=== PATIENT | male | born 1995 | race Two or more races ===

== ENCOUNTER 2025-01-04 15:26 | Emergency (ER) | payer MEDICAID, SELFPAY ==
[2025-01-04 15:34] VITALS: BP 174/89; PULSE 125; RESP 20; TEMP 36.9; O2SAT 98
--- NOTE | 2025-01-04 15:42 | PD.EDADULT ---
ED General RME/HPI General Stated complaint: leg pain Time Seen by Provider: 01/04/25 15:28 Arrival date/time: 01/04/25 15:26 RME / HPI RME / HPI narrative: DR. WINCHESTER MAIN ED EVALUATION: 29 year old male with past medical history significant for schizophrenia and polysubstance abuse presents to the Emergency Department [facility] after he was found walking on the side of the [facility] [address] towards [place]. Patient states that he wanted to catch a ride to [place] and was walking towards [place]. Per EMS, patient acting weird and was tachycardic at 125 on the monitor; blood pressure was 220/118 and blood glucose was 105. Patient denies any of the following: fall, injury, loss of consciousness, or any other symptoms at this time. Patient himself reports he is asymptomatic. Related Data Previous Rx's ?Medication ?Instructions ?Recorded sulfamethoxazole 400 1 tab PO BID #10 tabs 05/20/23 mg-trimethoprim 80 mg tablet (Bactrim) Allergies Allergy/AdvReac Type Severity Reaction Status Date / Time Penicillins Allergy Unknown RASH Verified 05/20/23 18:52 Review of Systems Review of Systems Systems Reviewed: All systems reviewed, normal except as documented Narrative Review of Systems: Constitutional: DENIES: fevers; Eyes: DENIES: loss of vision; Head/Ear/Nose: DENIES: loss of hearing. Throat: DENIES: dysphagia. Cardiovascular: DENIES: chest pain, dyspnea, or syncope. Respiratory: DENIES: shortness of breath; Gastrointestinal: DENIES: rectal bleeding or melena. Genitourinary: DENIES: dysuria (painful or difficult urination); Musculoskeletal: DENIES: arthralgia (pain in a joint); Skin: DENIES: rash; Neurological: DENIES: loss of function or movement; Psychiatric: DENIES: recent major life stressor, emotional problem, illicit drug use or abuse; Endocrinology: DENIES: weight change,; Hematologic/Lymphatic: DENIES: abnormal bruising. Allergic/Immunologic: DENIES: urticaria (hives). Past Medical History Past Medical History CARDIAC: Negative Congestive Heart Failure RESPIRATORY: Negative Chronic Obstructive Pulmonary Disease (COPD) GENITOURINARY: Negative Renal Disease ENDOCRINE: Negative Diabetes Mellitus Type 1 or Diabetes Mellitus Type 2 PSYCHO/SOCIAL: Positive Schizophrenia Social History SMOKING STATUS: Never smoker SUBSTANCE USE: marijuana and methamphetamine ALCOHOL: Never ED Exam Narrative Physical exam: Physical Exam:? General:?? ? The vital signs were reviewed. ? ? The patient is non-toxic, in no apparent distress and appears healthy with a patent airway, no respiratory distress and has no apparent circulatory problems. Head & Scalp:?? ? Normocephalic, atraumatic. Face:?? ? Appears normal and is without lesions, deformity. Ears:??? Left external pinna appears normal. ? ? Right external pinna appears normal. Eyes:?? ? The sclera is anicteric.? No obvious photophobia. ? ? The Left and Right Orbit/Lid/Conjunctiva appears normal without swelling, discoloration or injection. Nose: ? ? The nose is without deformity, discharge or tenderness; Throat: ? ? Appears normal.? The mucous membranes are pink and moist without exudates, redness or mass seen.? The tongue appears normal. Neck: The neck is supple and no apparent mass or adenopathy. Chest: The chest wall is normal in size and symmetry and has no chest wall tenderness or crepitus. ? ? The patient displays normal ventilator effort without retractions, accessory muscle use and has adequate air movement bilaterally with no wheezes and no rales. ? Cardiovascular: Heart rate is tachycardic at about 130. No murmurs, rubs, or gallops. Gastrointestinal: The abdomen appears normal.? No obvious hernias or mass. The abdomen is soft and benign, non-distended, with no pain, no guarding and no rebound tenderness.? Bowel sounds are present and normal sounding.? No CVA tenderness. Genitourinary: Back/Spine: Extremities/Musculoskeletal/lymphatic:? ? ? The bilateral upper and lower extremities are warm. There is no evidence of arterial? insufficiency. There is no evidence of venous insufficiency/edema. The patient spontaneously moves bilateral upper and lower extremities with no pain and no limitation of movement.? There is no apparent, injury or trauma. Skin:? The skin is warm, dry and intact.? No rashes. No petechia. No purpura. No abnormal bruising.? The color is appropriate with no cyanosis. Mental status/Psychiatric: Mental status is appropriate for age. The patient has no apparent delusions, visual hallucinations, no apparent audible hallucinations. The patient has no apparent suicidal thoughts/ideation and no apparent homicidal thoughts/ideation. Neurological:? The patient is awake, alert, interactive, cordial, cooperative and is oriented to name and situation. The patient follows commands and answers historical question with no impairment.?? There is no visual disturbance apparent.? The pupils are equal and reactive bilaterally with normal eye movements and no diplopia The bilateral upper and lower extremities have normal strength, normal range of motion and normal functioning. The gait, station and balance appears? to be baseline with no acute change Course Quality Measures none Orders Category Date Time Status EKG (ED ONLY) *Do not use* NOW Care 01/04/25 15:47 Completed EKG (ED Only) Stat Exams 01/04/25 15:47 Draft XR chest 1V portable Stat Exams 01/04/25 15:47 Ordered Alcohol, Blood Medical Stat Lab 01/04/25 15:43 Ordered Blood Culture (Lab) Stat Lab 01/04/25 15:47 Ordered CBC Stat Lab 01/04/25 15:43 Ordered Comprehensive Metabolic Panel Stat Lab 01/04/25 15:43 Ordered Drug Screen,Urine Stat Lab 01/04/25 15:43 Ordered Lactate (Lactic Acid) Stat Lab 01/04/25 15:47 Ordered T4 (Thyroxine) Stat Lab 01/04/25 15:46 Ordered TSH [Thyroid Stimulating Hormone] Stat Lab 01/04/25 15:43 Ordered Urinalysis Stat Lab 01/04/25 15:43 Ordered Venous Blood Gas Stat Lab 01/04/25 15:47 Ordered Vital Signs Vital signs: Vital Signs Temperature 98.4 F 01/04/25 15:34 Pulse Rate 125 H 01/04/25 15:34 Respiratory Rate 20 01/04/25 15:34 Blood Pressure 174/89 H 01/04/25 15:34 Pulse Oximetry (%) 98 01/04/25 15:34 Oxygen Delivery Method Room Air 01/04/25 15:34 [facility] Patient data External records reviewed:: EMS form Clinical information provided by:: patient and EMS Social determinants that could affect healthcare access:: substance use (polysubstance abuse ) Patient has the following chronic illnesses:: schizophrenia How is presenting disease/condition affected by chronic disease/condition?: exacerbated by Evaluation data The following diagnostics were reviewed and interpreted by me:: lab results, radiology exam(s) and EKG tracing(s) (EKG#1: EKG at 1611 hours. Interpreted by me: sinus tachycardia, rate 124, no STEMI) Lab and/or radiology exams considered but not ordered:: none Interpretation Summary: See above under MDM narrative. Medications Medications considered but not ordered:: none Medication administrations:: see above if any Consultations Consultation(s) initiated? (list below): No Diagnosis Differential Diagnosis ED Complaint MDM: dehydration, electrolyte imbalance, methamphetamine abuse, schizophrenia Most likely diagnosis given after review of the tests above:: See below Admission Indicated Admission indicated?: not indicated Explain why admission is indicated or not indicated:: Patient eloped. Admission Request Was there a request for admission?: No Disposition Plan Disposition Plan: other (specify) (Eloped) Medical Decision Making MDM Narrative MDM Narrative: Patient was seen in the ambulance bay and then moved to the waiting room he was found with confusion at [facility] they called an ambulance that came pick them up. Patient denies using any drugs but his heart rate was 124 he was acting weird making some strange comments. By had no pain or at was in no distress. Medical workup for tachycardia was initiated charge nurse put him in the waiting room at about 1620 hrs. the lab called me and states he is refusing his labs and soon after nurse approaches me and states he is eloped. While patient states he is not under the influence of any drugs I am highly suspicious that that would be the cause of his sinus tachycardia and note the EKG confirms that. There is no ST elevation MN. Geri Castanon, am scribing for and in the presence of Dr. Winchester. Differential Diagnosis Differential Diagnosis: dehydration, electrolyte imbalance, methamphetamine abuse, schizophrenia Discharge Plan Plan Patient Disposition: Elopement Prescriptions/Referrals Prescriptions/Med Rec: No Action sulfamethoxazole-trimethoprim [Bactrim] 400-80 mg tablet 1 tab PO BID Qty: 10 0RF Referrals: No Primary/Family,Physician [Primary Care Provider] - In 1 week Problem List Clinical Impression: Sinus tachycardia, Mental health problem Patient/Caregiver Discharge Instructions Print Language: Luxembourger
--- NOTE | 2025-01-04 15:47 | EKG_ITS ---
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
[2025-01-04 15:54] VITALS: PULSE 132; BMI 31.3
--- NOTE | 2025-01-04 16:01 | PC.NURSE ---
PT REFUSED X-RAY.
--- NOTE | 2025-01-04 16:30 | PC.NURSE ---
Patient was seen walking out, patient mumbled something unheard and left the facility. Patient did not answer at 1631, when asked by MD to have patient sign AMA form as patient had refused labs.
== END 2025-01-04 18:56 | disposition left against medical advice (07) ==
PROVIDERS: Emergency Provider Emergency Medicine
DX: R00.0 Tachycardia, unspecified (principal); F20.9 Schizophrenia, unspecified
CPT/HCPCS: 80053; 80307; 80320; 81001; 82803; 83605; 84436; 84443; 85025; 87040; 93005; 99281; G0480

== ENCOUNTER 2025-05-25 13:35 | Emergency (ER) | payer MEDICAID, SELFPAY ==
--- NOTE | 2025-05-25 14:07 | PD.EDABDPN ---
ED Abdominal Pain RME/HPI General Chief Complaint: Abdominal Pain Stated complaint: umbilical hernia painful Time seen by provider: 05/25/25 13:42 Arrival date/time: 05/25/25 13:35 RME / HPI RME / HPI narrative: 29 year old male with history of chronic pain on suboxone presents to the ED for evaluation of umbilical hernia pain beginning 30 minutes prior to arrival. States he has had the umbilical hernia since 2022 and no pain associated with it previously. Patient additionally reports since starting the Suboxone 3 months ago he has been constipated an straining more than usual. No other associated symptoms reported. Denies fevers, chills, nausea, vomiting. Related Data Previous Rx's ?Medication ?Instructions ?Recorded sulfamethoxazole 400 1 tab PO BID #10 tabs 05/20/23 mg-trimethoprim 80 mg tablet (Bactrim) polyethylene glycol 3350 17 17 g PO QDAY PRN constipation #238 05/25/25 gram/dose oral powder (Miralax) grams Allergies Allergy/AdvReac Type Severity Reaction Status Date / Time Penicillins Allergy Unknown RASH Verified 05/20/23 18:52 Review of Systems Review of Systems Systems Reviewed: All systems reviewed, normal except as documented Past Medical History Past Medical History PSYCHO/SOCIAL: Positive Schizophrenia Social History SMOKING STATUS: Current every day smoker SUBSTANCE USE: marijuana and methamphetamine ED Exam Narrative Physical exam: Constitutional: Awake, alert, nontoxic, no acute distress HEENT: NC, AT, EOMI Neck: Supple CV: RRR Lungs: no respiratory distress. Abd: Soft, umbilical hernia that is mildly indurated/swollen, after reduction pain resolved. Extremities: No deformities Neuro: AAOx3 Skin: Warm, dry, intact Course Course Course Narrative: The patient presented with an umbilical hernia with induration, swelling, and tenderness. Firm pressure was applied to the hernia, which was easily reduced without complications. Following reduction, the hernia was no longer palpable, and the pain resolved. The patient tolerated the procedure well, with no immediate complications. Quality Measures none Vital Signs Vital signs: Vital Signs Temperature 98.2 F 05/25/25 14:12 Pulse Rate 67 05/25/25 14:12 Respiratory Rate 20 05/25/25 14:12 Blood Pressure 153/99 H 05/25/25 14:12 Pulse Oximetry (%) 97 05/25/25 14:12 Oxygen Delivery Method Room Air 05/25/25 14:12 Abdominal Pain MDM MDM Narrative MDM Narrative:: IAlvina, am scribing for and in the presence of Dr. Herrera. Patient data External records reviewed:: [facility] previous records (I reviewed ED visit on 01/04/2025) Clinical information provided by:: patient Social determinants that could affect healthcare access:: none Patient has the following chronic illnesses:: Schizophrenia, umbilical hernia x 2012 How is presenting disease/condition affected by chronic disease/condition?: exacerbated by Evaluation data The following diagnostics were reviewed and interpreted by me:: other (specify) (No diagnostics ordered) Lab and/or radiology exams considered but not ordered:: None Interpretation Summary: N/A Medications / Prescriptions Medications or Prescriptions considered but not ordered:: None Medication administrations:: None Consultations Consultation(s) initiated? (list below): No Diagnosis Differential diagnosis abdominal pain: abdominal pain and other (umbilical hernia ) Most likely diagnosis given after review of the tests above:: Incarcerated umbilical hernia Admission Indicated Admission indicated?: not indicated Admission Request Was there a request for admission?: No Disposition Plan Disposition Plan: Discharge Discharge Attestation Discharge Attestation: The patient and all family members were given an opportunity to ask questions and understood the discharge instructions. Discharge instructions specifically effects, indications for sooner follow up or return to the emergency department, and the expected course of current diagnosis. Patient condition: Stable Discharge Plan Plan Patient Disposition: HOME (Self Care) Patient condition on transfer: Stable Prescriptions/Referrals Prescriptions/Med Rec: New polyethylene glycol 3350 [Miralax] 17 gram/dose powder 17 g PO QDAY PRN (Reason: constipation) Qty: 238 0RF No Action sulfamethoxazole-trimethoprim [Bactrim] 400-80 mg tablet 1 tab PO BID Qty: 10 0RF Problem List Clinical Impression: Incarcerated umbilical hernia Patient/Caregiver Discharge Instructions Diet Instructions: Increase the amount of fiber that you take in your diet: This includes fresh fruits and vegetables. May also use [id number] fiber supplements such as Metamucil. Ensure that you are drinking sufficient water/fluids -this can help with your constipation as well. May use prune juice or pear juice 1 cup daily at home to help with constipation. Education Materials: ED Hernia (Adult) Additional Instructions: Return to the emergency department for any worsening symptoms. Print Language: Georgian Stand Alone Forms: [employer] Patient Portal Info Letter
[2025-05-25 14:12] VITALS: BP 153/99; PULSE 67; RESP 20; TEMP 36.8; O2SAT 97; BMI 30.5
== END 2025-05-25 14:20 | disposition home or self-care (01) ==
LOC: SERX 14:27
PROVIDERS: Emergency Provider Family Medicine; PCP Family Medicine
DX: K42.0 Umbilical hernia with obstruction, without gangrene (principal); K59.00 Constipation, unspecified
CPT/HCPCS: 99282

== ENCOUNTER 2025-07-17 05:31 | Emergency (ER) | payer MEDICAID, SELFPAY ==
[2025-07-17 05:35] VITALS: BP 115/74; PULSE 75; RESP 19; TEMP 36.3; O2SAT 100; BMI 23.6
--- NOTE | 2025-07-17 06:18 | EDNOTE_ITS ---
ED Back Injury Pain RME/HPI General Chief Complaint: Back Pain/Injury Stated Complaint: LOWER BACK PAIN Time Seen by Provider: 07/17/25 06:17 Arrival date/time: 07/17/25 05:31 Mode of arrival: ambulatory Limitations: no limitations RME / HPI RME / HPI Narrative: DR. BO IBRAHIM ED EVALUATION: Patient is a 29-year-old male with medical history notable for depression that emerged primary concerns for right flank pain. Denies fevers chills nausea vomiting cough runny nose abdominal pain. Does endorse dysuria. Denies drugs alcohol smoking recent travel sick contacts. Related Data Previous Rx's ?Medication ?Instructions ?Recorded sulfamethoxazole 400 1 tab PO BID #10 tabs mg-trimethoprim 80 mg tablet (Bactrim) polyethylene glycol 3350 17 17 g PO QDAY PRN constipat ion #238 05/25/25 gram/dose oral powder (Miralax) grams ibuprofen 600 mg tablet 600 mg PO Q8H PRN pain #10 t abs 07/17/25 Allergies Allergy/AdvReac Type Severity Reaction Status Date / Time Penicillins Allergy Unknown RASH Verified 07/17/25 05:31 Review of Systems Review of Systems Systems Reviewed: All systems reviewed, normal except as documented Past Medical History Past Medical History PSYCHO/SOCIAL: Positive Schizophrenia Social History SMOKING STATUS: Never smoker SUBSTANCE USE: marijuana and methamphetamine ALCOHOL: Never ED Exam General Limitations: Present no limitations Head Head exam: Present atraumatic and normocephalic Eye Eye exam: Present normal appearance ENT ENT exam: Present normal exam and normal oropharynx Neck Neck exam: Present normal inspection and full ROM Chest Chest inspection: Present normal inspection and symmetric chest wall rise Respiratory Respiratory exam: Present normal lung sounds bilaterally; Absent respiratory distress or wheezes Cardiovascular Cardiovascular exam: Present regular rate, normal rhythm and bradycardia Abdominal Exam Abdominal exam: Present soft; Absent distention or tenderness Extremities Exam Extremities exam: Present normal inspection and full ROM Back Exam Back exam: Present normal inspection, full ROM and CVA tenderness (R); Absent tenderness or CVA tenderness (L) Neurological Exam Neurological exam: Present alert, oriented X3 and CN II-XII intact Psychiatric Psychiatric exam: Present normal affect Skin Skin exam: Present warm, dry and intact Course Quality Measures none Orders Category Date Time Status CT abdomen pelvis wo con Stat Exams 07/17/25 06:23 Completed CBC Stat Lab 07/17/25 06:42 Completed CMP [Comprehensive Metabolic Panel] Stat Lab 07/17/25 06:42 Completed Lipase Stat Lab 07/17/25 06:42 Completed UA, C/S IF [Urinalysis, C/S if Indicated] Stat Lab 07/17/25 06:52 Completed Ketorolac Inj [Toradol Inj] Med 07/17/25 06:23 Discontinued 15 mg IM X1 ONE Vital Signs Vital signs: Vital Signs Temperature 97.4 F 07/17/25 05:35 Pulse Rate 75 07/17/25 05:35 Respiratory Rate 19 07/17/25 05:35 Blood Pressure 115/74 07/17/25 05:35 Pulse Oximetry (%) 100 07/17/25 05:35 Oxygen Delivery Method Room Air 07/17/25 05:35 Back Pain / Injury MDM Narrative MDM Narrative:: Patient is a 29-year-old male is in the emerged from concerns for right flank pain. Vital signs and exam as listed. Concern for pyelonephritis, urolithiasis, urinary tract infection among others. Patient abdomen soft nondistended nontender, less likely acute intra-abdominal pathology. Patient without any midline tenderness palpation along his entire spine, less likely spinal cord injury, patient without any red flags for back pain at this time no saddle anesthesia no urinary incontinence, no step-offs deformities no midline tenderness to palpation, no fevers. Ordered labs, CT as well as offered medication for symptom relief. Labs with evidence of leukocytosis 13.7, no left shift. Patient hemoglobin 13.2. No significant metabolic derangement, no evidence of renal dysfunction, no transaminitis lipase not elevated urinalysis with no bacteria, and 2 white blood cells, negative leuk esterase, negative nitrites. Less likely infection. CT abdomen pelvis with evidence of possible cystitis however patient does not have any dysuria. Patient has a 23 mm umbilical hernia, easily reducible at bedside. Patient has no abdominal pain. Has a 2 mm right renal calculus. No evidence of hydronephrosis. Will prescribe patient Flomax, advised him to hydrate well at home, and to use ibuprofen at home for pain. Patient is to establish care with a urologist. Patient is to return immediately if he develops fever, worsening symptoms or any other symptom of concern. Patient discharged hemodynamically stable not distressed Geri Castanon, am scribing for and in the presence of Dr. Hairston. Patient data External records reviewed:: [facility] previous records Clinical information provided by:: patient Social determinants that could affect healthcare access:: mental health Patient has the following chronic illnesses:: see mdm How is presenting disease/condition affected by chronic disease/condition?: uneffected by Evaluation data The following diagnostics were reviewed and interpreted by me:: lab results and radiology exam(s) Lab and/or radiology exams considered but not ordered:: none Interpretation Summary: See MDM narrative above. RADIOLOGY Procedure(s): CT abdomen pelvis wo [facility] Accession Number(s): [id number] cc: Sergio Hardy MD; NO PRIMARY/FAMILY,PHYSICIAN; Rosana Hairston MD~ Examination: CT abdomen and pelvis without contrast. Coronal 3-D reconstructions. Sagittal 2-D reconstructions. Date and time of exam:July 17, 2025, 0650 hrs. Indications: Right flank pain beginning 3 days ago CTDI: vol (mGy): 6.63 DLP: (mGycm): 416 Technique: Axial images of the abdomen have been obtained, 3 mm slice thickness Intravenous contrast material has not been administered. Low dose protocols were performed. One or more of the following dose reduction techniques were used; automated exposure control, adjustment of the mA and/or KV according to patient size, use of iterative reconstruction technique. Findings: 30 mm thick-walled cavitary lesion in the right lower lobe, please see the chest report September 19, 2022 No visualized liver or splenic lesions No gallstones No pancreatic or adrenal mass. 2 mm right renal calculus image 94, no hydronephrosis or ureteral calculi 23 mm umbilical hernia containing incarcerated fat Normal appendix No bowel obstruction No prostatomegaly Contracted urinary bladder with urinary bladder wall thickening up to 9 mm Intact osseous structures Impression: 30 mm thick-walled cavitary lesion in the right lower lobe, please see the chest report September 19, 2022 2 mm nonobstructing right renal calculus, no hydronephrosis or ureteral calculi 23 mm umbilical hernia containing incarcerated fat Normal appendix No bowel obstruction Cystitis pattern Dictated By: Sergio Hardy MD Medications / Prescriptions Medications or Prescriptions considered but not ordered:: none Medication administrations:: Medication Administration History Discontinued Medications Ketorolac Tromethamine (Ketorolac Inj 30 Mg/Ml Vial) 15 mg IM X1 ONE Stop: 07/17/25 06:24 Last Admin: 07/17/25 06:41 Dose: 15 mg Documented By: CVL none Consultations Consultation(s) initiated? (list below): No Diagnosis Differential diagnosis back pain/injury: other (Pyelonephritis, nephrolithiasis, and an UTI.) Most likely diagnosis given after review of the tests above:: see mdm Admission Indicated Admission indicated?: not indicated Admission Request Was there a request for admission?: No Disposition Plan Disposition Plan: Discharge Discharge Attestation Discharge Attestation: The patient and all family members were given an opportunity to ask questions and understood the discharge instructions. Discharge instructions specifically effects, indications for sooner follow up or return to the emergency department, and the expected course of current diagnosis. Patient condition: Stable Discharge Plan Plan Patient Disposition: HOME (Self Care) Prescriptions/Referrals Prescriptions/Med Rec: New ibuprofen 600 mg tablet 600 mg PO Q8H PRN (Reason: pain) Qty: 10 0RF No Action sulfamethoxazole-trimethoprim [Bactrim] 400-80 mg tablet 1 tab PO BID Qty: 10 0RF polyethylene glycol 3350 [Miralax] 17 gram/dose powder 17 g PO QDAY PRN (Reason: constipation) Qty: 238 0RF Referrals: No Primary/Family,Physician [Primary Care Provider] - In 1 week Problem List Clinical Impression: Kidney calculi Patient/Caregiver Discharge Instructions Education Materials: ED Kidney Stone w/ Colic Additional Instructions: You have a 2 mm nonobstructing kidney stone. It is important that you hydrate well, and that you establish care with a urologist. The stone will very likely pass however you up to help by hydrating well. Return immediately if you develop fever, worsening pain or any other symptom of concern. You can take ibuprofen at home for pain. Print Language: Palauan Stand Alone Forms: [employer] Patient Portal Info Letter
--- NOTE | 2025-07-17 06:23 | XR_ITS ---
Examination: CT abdomen and pelvis without contrast. Coronal 3-D reconstructions. Sagittal 2-D reconstructions. Date and time of exam:July 17, 2025, 0650 hrs. Indications: Right flank pain beginning 3 days ago CTDI: vol (mGy): 6.63 DLP: (mGycm): 416 Technique: Axial images of the abdomen have been obtained, 3 mm slice thickness Intravenous contrast material has not been administered. Low dose protocols were performed. One or more of the following dose reduction techniques were used; automated exposure control, adjustment of the mA and/or KV according to patient size, use of iterative reconstruction technique. Findings: 30 mm thick-walled cavitary lesion in the right lower lobe, please see the chest report September 19, 2022 No visualized liver or splenic lesions No gallstones No pancreatic or adrenal mass. 2 mm right renal calculus image 94, no hydronephrosis or ureteral calculi 23 mm umbilical hernia containing incarcerated fat Normal appendix No bowel obstruction No prostatomegaly Contracted urinary bladder with urinary bladder wall thickening up to 9 mm Intact osseous structures Impression: 30 mm thick-walled cavitary lesion in the right lower lobe, please see the chest report September 19, 2022 2 mm nonobstructing right renal calculus, no hydronephrosis or ureteral calculi 23 mm umbilical hernia containing incarcerated fat Normal appendix No bowel obstruction Cystitis pattern
[2025-07-17] MEDS: KETOROLAC INJ 30 MG/ML VIAL 15 MG IM (06:41)
[2025-07-17 07:04] LABS: Basophils # (Auto) 0.0 Thou/mm3 (0.0-0.2); Basophils % (Auto) 0 % (0-2.5); Eosinophils # (Auto) 0.0 Thou/mm3 (0.0-0.5); Eosinophils % (Auto) 0 % (0-10); Hematocrit 39.6 % (41.0-53.0); Hemoglobin 13.2 g/dL (13.5-16.0); Immature Granulocytes Auto 0.06 Thou/mm3 (0.00-0.00); Lymphocytes # (Auto) 1.7 Thou/mm3 (1.0-4.8); Lymphocytes % (Auto) 13 % (10-50); Mean Corpuscular HGB Conc 33.3 g/dl (31.0-37.0); Mean Corpuscular Hemoglobin 30.4 pg (25.0-35.0); Mean Corpuscular Volume 91 fL (80-100); Monocytes # (Auto) 1.2 Thou/mm3 (0.0-0.8); Monocytes % (Auto) 9 % (0-12); Neutrophils # (Auto) 10.7 Thou/mm3 (1.8-7.7); Neutrophils % (Auto) 78 % (37-80); Nucleated Red Blood Cell # 0.00 Thou/mm3 (0.00-0.00); Nucleated Red Blood Cell % 0 /100 WBC (0); Platelet Count 323 Thou/mm3 (140-440); RDW Standard Deviation 45.3 fL (35.1-43.9); Red Blood Count 4.34 Miln/mm3 (4.50-5.90); White Blood Count 13.7 Thou/mm3 (3.8-10.6)
[2025-07-17 07:06] LABS: Collection Type, Urine Clean Catch
[2025-07-17 07:28] LABS: Bilirubin,Urine Negative (Negative); Blood,Urine Negative (Negative); Clarity,Urine Clear (Clear/Hazy); Color,Urine Lt-Yellow (Lt Yel-Yel); Culture Indicated,Urine Not Indicated; Glucose, Urine Negative (Negative); Ketones,Urine Negative (Negative); Leukocyte Esterase,Urine Negative (Negative); Nitrite,Urine Negative (Negative); PH,Urine 7.5 (5.0-7.0); Protein,Urine Negative (Neg - Trace); RBC,Urine < 1 /hpf (0-3); Specific Gravity,Urine 1.009 (1.001-1.035); Squamous Epithelial Cell,Urine < 1 /hpf (0-5); Urobilinogen,Urine Negative mg/dL (0.0-1.0); WBC,Urine 2 /hpf (0-5)
[2025-07-17 07:48] LABS: Alanine Aminotransferase 24 U/L (10-49); Albumin, Serum 4.6 gm/dL (3.5-5.0); Albumin/Globulin Ratio 1.6 (1.2-2.2); Alkaline Phosphatase 102 U/L (46-116); Anion Gap 7 (7-16); Aspartate Amino Transferase 16 U/L (0-34); BUN/Creatinine Ratio 10 Ratio (12-20); Bilirubin,Total 0.3 mg/dL (0.3-1.2); Blood Urea Nitrogen 9 mg/dL (9-23); Calcium 9.5 mg/dL (8.3-10.6); Calcium (Corrected) 9.5 mg/dL (8.5-10.1); Carbon Dioxide 31.2 mMol/L (20.0-31.0); Chloride 102 mMol/L (98-107); Creatinine (Component) 0.9 mg/dL (0.6-1.3); Estimated Creatinine Clearance 115.1 mL/min (>60); Globulin 2.8 gm/dL (2.3-3.5); Glucose 107 mg/dL (74-106); Lipase 28 U/L (12-53); Osmolality,Calculated 278 (275-295); Potassium 3.9 mMol/L (3.4-5.1); Sodium 140 mMol/L (136-145); Total Protein 7.4 gm/dL (5.7-8.2); eGFR > 60 See Note
[2025-07-17 08:00] VITALS: BP 159/83; PULSE 78; RESP 16; TEMP 36.4; O2SAT 98
--- NOTE | 2025-07-17 17:06 | PC.CC ---
Statistics Tutor received request from bedside nurse for coordination of transportation. Statistics Tutor coordinated [employer] transportation. Information was communicated to Pt and bedside nurse.
== END 2025-07-17 08:14 | disposition home or self-care (01) ==
PROVIDERS: Emergency Provider Emergency Medicine
DX: N20.0 Calculus of kidney (principal); F20.9 Schizophrenia, unspecified; K42.9 Umbilical hernia without obstruction or gangrene; Z88.0 Allergy status to penicillin
CPT/HCPCS: 36415; 74176; 80053; 81001; 83690; 85025; 96372; 99284; J1885

== ENCOUNTER 2025-08-18 03:56 | Inpatient (IN) | payer MEDICAID, SELFPAY ==
[2025-08-18] VITALS (17 sets, daily range): BP systolic 145–191; BP diastolic 85–107; PULSE 70–115; RESP 14–20; TEMP 36.1–37.4; O2SAT 97–100; BMI 28.1; BMI 30.1
--- NOTE | 2025-08-18 04:09 | PD.EDABDPN ---
ED Abdominal Pain RME/HPI General Chief Complaint: Abdominal Pain Stated complaint: ABD PAIN Time seen by provider: 08/18/25 04:09 Arrival date/time: 08/18/25 03:56 RME / HPI RME / HPI narrative: Dr. Graves?s Main ED Evaluation: 30yo male ELVIRA BROWNO presents to the ED for a chief complaint of abdominal pain. Patient states he has a hernia, reporting he started developing worsening abdominal pain over the last few hours. Patient reports associated nausea and vomiting. Denies any other associated symptoms. Related Data Previous Rx's ?Medication ?Instructions ?Recorded sulfamethoxazole 400 1 tab PO BID #10 tabs 05/20/23 mg-trimethoprim 80 mg tablet (Bactrim) polyethylene glycol 3350 17 17 g PO QDAY PRN constipation #238 05/25/25 gram/dose oral powder (Miralax) grams ibuprofen 600 mg tablet 600 mg PO Q8H PRN pain #10 tabs 07/17/25 tamsulosin 0.4 mg capsule (Flomax) 0.4 mg PO QDAY #14 caps 07/17/25 Allergies Allergy/AdvReac Type Severity Reaction Status Date / Time Penicillins Allergy Unknown RASH Verified 08/18/25 04:21 Review of Systems Review of Systems Systems Reviewed: All systems reviewed, normal except as documented Past Medical History Past Medical History CARDIAC: Negative Congestive Heart Failure RESPIRATORY: Negative Chronic Obstructive Pulmonary Disease (COPD) GENITOURINARY: Negative Renal Disease ENDOCRINE: Negative Diabetes Mellitus Type 1 or Diabetes Mellitus Type 2 PSYCHO/SOCIAL: Positive Schizophrenia Social History SMOKING STATUS: Never smoker SUBSTANCE USE: marijuana and methamphetamine ED Exam Narrative Physical exam: Generally patient is alert and oriented x 3 in mild distress secondary to abdominal pain, heart regular rate and rhythm, lungs clear to auscultation equal bilaterally, abdomen soft bowel sounds are present nondistended periumbilical hernia that is not reducible. Course Quality Measures none Orders Category Date Time Status CT Screening NOW Care 08/18/25 04:13 Active Insert IV NOW Care 08/18/25 04:[address] abdomen pelvis w con Stat Exams 08/18/25 04:13 Ordered CBC Stat Lab 08/18/25 04:31 Received CMP [Comprehensive Metabolic Panel] Stat Lab 08/18/25 04:31 Received Lipase Stat Lab 08/18/25 04:31 Received HYDROmorphone INJ [Dilaudid Inj] Med 08/18/25 04:13 Discontinued 1 mg IVP X1 ONE HYDROmorphone INJ [Dilaudid Inj] Med 08/18/25 05:02 Discontinued 1 mg IVP X1 ONE Ringers Lactated 1000 ml [Lactated Ringers] 1,000 ml Med 08/18/25 04:13 Discontinued IV 999 mls/hr Vital Signs Vital signs: Vital Signs Temperature 98.3 F 08/18/25 04:23 Pulse Rate 70 08/18/25 04:23 Respiratory Rate 18 08/18/25 04:23 Blood Pressure 191/98 H 08/18/25 04:23 Pulse Oximetry (%) 100 08/18/25 04:23 Oxygen Delivery Method Room Air 08/18/25 04:23 Abdominal Pain [facility] Narrative [facility] Narrative:: Scribe Attestation: 08/18/25 - Gabi Castanon am scribing for and in the presence of Dr. Graves. Lab work and CT scan are pending. Clinically this patient has an incarcerated periumbilical hernia. I gave this patient Dilaudid 1 mg IV x 2 and attempted to reduce the hernia without success. Signed out to Dr. Garcia. Patient data External records reviewed:: [facility] previous records (Per chart review, patient was seen here on 07/17/25 for kidney calculi.) Clinical information provided by:: patient Social determinants that could affect healthcare access:: mental health Patient has the following chronic illnesses:: schizophrenia How is presenting disease/condition affected by chronic disease/condition?: uneffected by Evaluation data The following diagnostics were reviewed and interpreted by me:: lab results and radiology exam(s) Lab and/or radiology exams considered but not ordered:: none Interpretation Summary: See [facility] Medications / Prescriptions Medications or Prescriptions considered but not ordered:: none Medication administrations:: Medication Administration History Discontinued Medications Hydromorphone HCl (Hydromorphone Inj 2 Mg/Ml Vial) 1 mg IVP X1 ONE Stop: 08/18/25 04:14 Last Admin: 08/18/25 04:30 Dose: 1 mg Documented By: JOSUE Hydromorphone HCl (Hydromorphone Inj 2 Mg/Ml Vial) 1 mg IVP X1 ONE Stop: 08/18/25 05:03 Last Admin: 08/18/25 05:30 Dose: 1 mg Documented By: JOSUE Lactated Ringer's (Lactated Ringers) 1,000 mls @ 999 mls/hr IV .Q1H1M ONE Stop: 08/18/25 05:13 Last Admin: 08/18/25 04:30 Dose: 999 mls/hr Documented By: JOSUE see above Consultations Consultation(s) initiated? (list below): No Diagnosis Differential diagnosis abdominal pain: other (See MDM) Most likely diagnosis given after review of the tests above:: see clinical impression below Admission Indicated Admission indicated?: not indicated Admission Request Was there a request for admission?: No Disposition Plan Disposition Plan: other (specify) (Signed out to Dr. Garcia at 0600.) Discharge Plan Prescriptions/Referrals Prescriptions/Med Rec: No Action sulfamethoxazole-trimethoprim [Bactrim] 400-80 mg tablet 1 tab PO BID Qty: 10 0RF polyethylene glycol 3350 [Miralax] 17 gram/dose powder 17 g PO QDAY PRN (Reason: constipation) Qty: 238 0RF ibuprofen 600 mg tablet 600 mg PO Q8H PRN (Reason: pain) Qty: 10 0RF tamsulosin [Flomax] 0.4 mg capsule 0.4 mg PO QDAY Qty: 14 0RF Problem List Clinical Impression: Incarcerated umbilical hernia Patient/Caregiver Discharge Instructions Print Language: Malawian
--- NOTE | 2025-08-18 04:13 | XR_ITS ---
Examination: CT abdomen with intravenous contrast CT pelvis with intravenous contrast 2-D coronal reconstructions 2-D sagittal reconstructions Date and time of exam: 08/18/2025, 6:00 a.m. INDICATION: Abdominal pain with nausea and vomiting. History of umbilical hernia since 2022 with pain at the hernia site worsening. COMPARISON: 07/17/2025 CTDI: vol (mGy) 8.35 DLP: (mGycm) 477 Technique: Multiple axial sections of the abdomen and pelvis have been obtained. 64 slice high-resolution scanner used. 3 mm axial sections have been obtained, post intravenous injection of 60 mL Isovue 370 2-D sagittal, coronal reconstructions obtained. Low dose protocols were performed. One or more of the following dose reduction techniques were used; automated exposure control, adjustment of the mA and/or KV according to patient size, use of iterative reconstruction technique. Findings: Lower chest: No cardiomegaly or pericardial effusion. No airspace consolidation or pleural effusion. However, there is been interval development of more numerous tree-in-bud opacities in the periphery of the partially imaged right lower lobe. Partially imaged scarring in the region is present. Liver: The liver measures 17.5 cm in craniocaudal dimension and demonstrates smooth margins and relatively homogeneous enhancement. Benign region of hypoenhancement pseudo-lesion noted on both sides of the falciform ligament. No apparent liver lesion on single phase imaging. Biliary system: No calcified gallstones or findings concerning for acute cholecystitis or biliary ductal obstruction. Spleen: Within normal limits of size. No solid mass. Pancreas: No apparent infiltrative mass. No main pancreatic duct dilatation. No acute inflammatory changes. Adrenal glands: No significant findings. Kidneys and ureters: A complex septated lobulated interpolar Bosniak type II F right renal cyst measures 3 cm CC on coronal image 96. Septation is slightly thickened and enhancing but no nodularity is seen. Several subcentimeter hypodense foci are present in both kidneys. Several of these cysts are too small to characterize but statistically most likely represent cysts. No solid mass. No calculi or hydroureteronephrosis. No evidence for acute pyelonephritis. Bladder: No calculi or focal mass. Pelvic organs: No concerning focal lesion or acute abnormality. Lymph nodes/retroperitoneum: No pathologically enlarged lymph nodes or other masses. No hematoma or other abnormal collections. Vessels: No abdominal aortic aneurysm. Bowel/Peritoneal cavity: Interval development of a small bowel obstruction secondary to an incarcerated bilobed, small bowel-containing periumbilical hernia, left side greater than right. The hernia measures approximately 7.1 x 4.7 cm in transaxial dimensions by 4.2 cm in craniocaudal dimension. The neck of the hernia measures approximately 2.1 cm transverse. There is upstream dilated small bowel with gas-liquid levels. Slight mural thickening of the distended small bowel loop noted on the left side of the periumbilical hernia. No significant mural thickening of small bowel within the peritoneal cavity. No evidence for pneumatosis, portal venous gas, pneumoperitoneum or ascites. No evidence for colitis or diverticulitis. Musculoskeletal: No acute fractures. The relatively large Schmorl's node is present at the inferior endplate of L3, notably progressive compared to the prior CT. Interval development of a new very small Schmorl's node in the adjacent L4 superior endplate. Mild S-shaped scoliosis is present. IMPRESSION: Interval development of a small bowel obstruction secondary to an incarcerated bilobed, small bowel-containing periumbilical hernia that measures 7.1 x 4.7 x 4.2 cm in size with the neck of the hernia measuring 2.1 cm transverse. Ancillary findings as above. Preliminary findings were communicated to the ER by [facility] at 6:00 a.m. on 08/18/2025
[2025-08-18] MEDS: RINGERS LACTATED 1000 ML 1,000 ML 999 ML IV (04:30)
[2025-08-18] MEDS: HYDROmorphone INJ 2 MG/ML VIAL 1 MG IVP ×3 (04:30→07:29)
[2025-08-18 05:26] LABS: Basophils # (Auto) 0.0 Thou/mm3 (0.0-0.2); Basophils % (Auto) 0 % (0-2.5); Eosinophils # (Auto) 0.0 Thou/mm3 (0.0-0.5); Eosinophils % (Auto) 0 % (0-10); Hematocrit 37.9 % (41.0-53.0); Hemoglobin 13.3 g/dL (13.5-16.0); Immature Granulocytes Auto 0.04 Thou/mm3 (0.00-0.00); Lymphocytes # (Auto) 2.1 Thou/mm3 (1.0-4.8); Lymphocytes % (Auto) 14 % (10-50); Mean Corpuscular HGB Conc 35.1 g/dl (31.0-37.0); Mean Corpuscular Hemoglobin 30.9 pg (25.0-35.0); Mean Corpuscular Volume 88 fL (80-100); Monocytes # (Auto) 1.4 Thou/mm3 (0.0-0.8); Monocytes % (Auto) 9 % (0-12); Neutrophils # (Auto) 12.1 Thou/mm3 (1.8-7.7); Neutrophils % (Auto) 77 % (37-80); Nucleated Red Blood Cell # 0.00 Thou/mm3 (0.00-0.00); Nucleated Red Blood Cell % 0 /100 WBC (0); Platelet Count 347 Thou/mm3 (140-440); RDW Standard Deviation 43.0 fL (35.1-43.9); Red Blood Count 4.31 Miln/mm3 (4.50-5.90); White Blood Count 15.7 Thou/mm3 (3.8-10.6)
[2025-08-18 05:39] LABS: Alanine Aminotransferase 33 U/L (10-49); Albumin, Serum 5.2 gm/dL (3.5-5.0); Albumin/Globulin Ratio 1.9 (1.2-2.2); Alkaline Phosphatase 105 U/L (46-116); Anion Gap 14 (7-16); Aspartate Amino Transferase 45 U/L (0-34); BUN/Creatinine Ratio 13 Ratio (12-20); Bilirubin,Total 1.1 mg/dL (0.3-1.2); Blood Urea Nitrogen 10 mg/dL (9-23); Calcium 10.1 mg/dL (8.3-10.6); Calcium (Corrected) 10.1 mg/dL (8.5-10.1); Carbon Dioxide 23.2 mMol/L (20.0-31.0); Chloride 100 mMol/L (98-107); Creatinine (Component) 0.8 mg/dL (0.6-1.3); Estimated Creatinine Clearance 135.6 mL/min (>60); Globulin 2.7 gm/dL (2.3-3.5); Glucose 97 mg/dL (74-106); Lipase 27 U/L (12-53); Osmolality,Calculated 272 (275-295); Potassium 3.7 mMol/L (3.4-5.1); Sodium 137 mMol/L (136-145); Total Protein 7.9 gm/dL (5.7-8.2); eGFR > 60 See Note
--- NOTE | 2025-08-18 07:18 | PRELIM_ITS ---
CT scan of the abdomen and pelvis with intravenous contrast (axial sections with sagittal and coronal reformats) August 18, 2025 at 0600 hours Clinical History: Abdominal pain. Comparison: No prior study is available for comparison. Findings: There are multiple tree in bud opacities at the right lung base. Bilateral renal cysts are seen.The liver, gallbladder, pancreas, spleen, adrenals are unremarkable. There is a 2.5cm right renal cyst with thin septation ( Bosniak 2). Small hypodense lesions are noted in the left kidney, too small to carolee racterize. Small bowel loops are mildly dilated with air-fluid levels and transition at the neck of a complex paraumbilical hernia, containingsmall bowel loop on the left and part of the small bowel wall on the right.The appendix is within normal limits. There is no mesenteric or retroperitoneal adenopathy. The urinary bladder is unremarkable. There is no free fluid or free air. Schmorl's nodes are seen at the L3/L4 levels. Impression: 1. Evolving small bowel obstruction with transition at the neck of a complex paraumbilical hernia, containingsmall bowel loop on the left and part of the small bowel wall on the right. 2. Findings compatible with incarcerated complex paraumbilical hernia. Discussion Details: Results verbally communicated to : Dr Dinero at 07:11 AM 08/18/2025 Report Electronically Signed By: Carmen Varela 08/18/2025 7:17:46 AM [EST]
--- NOTE | 2025-08-18 07:25 | PC.NURSE ---
Pt. here from detention to room 10 with Officer Delfino bedside pt. states he has had a umbilical hernia for 3 years and yesterday after he got arrested it started hurting and he started having nausea and vomiting. Dr. Garcia is bedside trying to reduce hernia, pt. is moaning and crying.
[2025-08-18 08:24] LABS: Lactate (Lactic Acid) 0.9 mMol/L (0.4-2.0)
[2025-08-18] MEDS: SODIUM CHLORIDE 0.9% 1000 ML 1,000 ML 999 ML IV (09:03)
[2025-08-18] MEDS: ceFAZolin/D5W 1 GM IVPB 1 GM/50 ML BAG IV (09:04)
--- NOTE | 2025-08-18 09:06 | PC.NURSE ---
Dr. Serrato is bedside talking to pt.
--- NOTE | 2025-08-18 09:35 | SUR.PREOP ---
Called and received report on pt. from Amada SIERRA in ER.
--- NOTE | 2025-08-18 10:13 | PC.NURSE ---
Pt. refusing to sign consent for surgery. Informed Dr. Garcia, will inform Dr. Serrato.
--- NOTE | 2025-08-18 10:15 | PC.NURSE ---
called Cindy SIERRA from [facility] care and she states she will come talk to pt. Cindy states she will inform Dr. Serrato.
--- NOTE | 2025-08-18 10:41 | PC.NURSE ---
received a call from Zara Panda from [facility] [phone]., Zara wanted report on pt. informed Zara pt. is going to the OR.
--- NOTE | 2025-08-18 10:43 | PC.NURSE ---
Pt. taken to OR via wheel chair with Cindy SIERRA and Antwan SIERRA, Antwan took chart.
--- NOTE | 2025-08-18 10:45 | SUR.PREOP ---
Pt. transferred from ER to [facility] as a hold for surgery. Pt. is AAOx3, no c/o pain or nausea at this time, IV to right ac saline locked, chief informatics officer at bedside, call light within reach.
--- NOTE | 2025-08-18 12:40 | ESHP_ITS ---
HPI Date of Admission 08/18/2025 Chief Complaint Chief Complaint: Patient is admitted with a history of small bowel obstruction and a painful lump around the umbilicus HPI History of present lisinopril that the patient has had this for some time he is not a poor historian and may have some mild mental retardation. At the present time he is in skilled nursing and was seen in the emergency room due to painful mass. Past medical history with the patient had some surgery on his head in [place] but the details are not available Past Medical History Past Medical History NEUROLOGIC: Negative Seizures CARDIAC: Negative Cardiac Disorders or Congestive Heart Failure RESPIRATORY: Negative Chronic Obstructive Pulmonary Disease (COPD) or Asthma GENITOURINARY: Negative Renal Disease ENDOCRINE: Negative Diabetes Mellitus Type 1 or Diabetes Mellitus Type 2 HEMATOLOGIC: Negative Sickle Cell Disease PSYCHO/SOCIAL: Positive Schizophrenia OTHER HISTORY: Negative Blood Transfusions, Blood Transfusion Reaction or Anesthesia Reactions Social History SMOKING STATUS: Former smoker SUBSTANCE USE: marijuana and methamphetamine Meds Home Medications and Allergies Allergies Allergy/AdvReac Type Severity Reaction Status Date / Time Penicillins Allergy Unknown RASH Verified 08/18/25 04:21 Exam Vital Signs Temp Pulse Resp BP Pulse Ox O2 Del Method 99.3 F 104 H 18 157/101 H 97 Room Air 08/18/25 10:10 08/18/25 10:10 08/18/25 10:10 08/18/25 10:10 08/18/25 10:10 08/18/25 10:10 Narrative Exam Physical examination revealed a well-built well-nourished 30-year-old female who speaks Norwegian. He is 5 foot 7 inches tall weighing 180 pounds with BMI of 28.2. His vital signs are normal other than mild tachycardia of 104 Constitutional Constitutional: mild distress Routine Abdominal Exam Comments: Examination of the abdomen showed no distention but he has a very tender umbilicus with redness suggesting some inflammation. Clinically there is no signs of bowel obstruction Routine Rectal Exam Comments: Deferred Routine Exam Comments: Deferred Results Results: Laboratory Laboratory Narrative: Patient's laboratory workup showed leukocytosis around 15,000. Results: Imaging Imaging narrative: CT scan of the abdomen showed incarcerated umbilical hernia. Patient also has signs of small bowel obstruction secondary to this incarceration Assessment & Plan Additional Assessment Additional comments: Impression: Incarcerated umbilical hernia Possible small bowel obstruction Plan Plan: Patient will require immediate surgery to relieve obstruction. The discoloration of the umbilicus shows the patient may have ischemia of the intestine. There is definitely a loop of bowel which is seen in the hernial s ac. Patient has been started on antibiotics consisting of Ancef and he will be taken to the operating room as soon as 1 is available. Quality Measures Quality Measures none
--- NOTE | 2025-08-18 15:40 | SUR.PHASEI ---
pt received from OR in recovery bay 8. pt obtunded, breathing unlabored on oxymask 8l, oral airway in place. v/s stable. pt dressing to abd cdi. report received from Antwan SIERRA and Yue JENKINS.
--- NOTE | 2025-08-18 15:44 | ESOP_ITS ---
Date of Procedure 08/18/25 Pre Op Diagnosis Incarcerated umbilical hernia with small bowel obstruction Post Op Diagnosis Strangulated umbilical hernia with gangrene of the small bowel and small bowel obstruction Procedure Repair of the strangulated umbilical hernia and resection of the small bowel and end-to-end anastomosis Findings Patient is found to have a gangrenous small bowel which required resection of about 6 inches of small bowel. Procedure Description After the patient was brought to the operating room patient was given endotr acheal anesthesia. Abdomen was prepped with ChloraPrep solution and draped in a sterile manner. Then I made a curved incision after the timeout was performed below the umbilicus. Then I dissected out the sac which was very focal and could not be reduced. This was obviously an incarcerated hernia that has been there for few days. I opened the sac and found out that the patient had a gangrenous small bowel. I divided the fascia more and then pulled out the normal bowel. I put some warm soaks but the color even though improved there was still some areas of necrosis. Therefore I have decided to resect it. This was resected by using a ANTELMO 55 blue marci. About 6 inches of small bowel was resected and then the end and anastomosis performed using a ANTELMO. The opening in the bowel was then closed with a TA 60 green marci. Then after checking for the bleeding points the wound was extensively irrigated. Then the small bowel was pushed inside the abdominal cavity. The fascia was sutured with 0 Ethibond without much tension. No mesh was used because of the contamination. The subcutaneous tissue was irrigated and closed with 3-0 chromic and the wound was stapled after injecting local anesthesia. Dressing was applied with Adaptic and 4 x 4 gauze and patient tolerated the procedure well. Anesthesia GETA Pathology / specimen Other (Portion of the small bowel with ischemia) Pathology comment: Small bowel which was ischemic and gangrenous IVF Infused 1,200 Estimated Blood Loss 100 Surgeon Vamsi Luna MD Surgical Staff Operation Date: 08/18/25 14:15 Case Staff Anesthesiologist: Stan Oneill RN First Assistant: Belen Diaz
[2025-08-18] MEDS: ceFAZolin/D5W 2 GM IV 2 GM/100 ML BAG IV (16:01)
[2025-08-18] MEDS: SODIUM CHLORIDE 0.9% 1000 ML 1,000 ML 125 ML IV (16:10)
--- NOTE | 2025-08-18 16:12 | SUR.PHASEII ---
pt able to tolerate ice chips without difficulty swallowing or nausea/vomiting.
--- NOTE | 2025-08-18 16:35 | SUR.PHASEII ---
report from nurse nadine. pt sitting up in [facility] eating ice chips. alert and oriented. . denies pain and nausea. vss. breathing tammy and unlabored. dressing remains cdi. officer remains at bedside.
[2025-08-18] MEDS: MORPHINE SULF INJ 4 MG/ML VIAL IVP (17:30)
--- NOTE | 2025-08-18 18:00 | SUR.PHASEII ---
report called to thong on ms. vss. breathing even and unlabored. denies pain and nausea. dressing remains cdi. DEPUTY at bedside. transported to room via gurney with all belongings. upon discharge nurse to nurse report requested [id number]. and dr to [phone] dr gutierrez.
--- NOTE | 2025-08-18 18:10 | PC.NURSE ---
pt came with officer at 1810. pt in bed safe and comfortable with bed low and locked. call light within reach
[2025-08-18] MEDS: KETOROLAC INJ 30 MG/ML VIAL IVP (18:25)
--- NOTE | 2025-08-18 20:00 | PC.NURSE ---
Patient resting, abdominal dressing dry and intact. Able to tolerate clear liquid. affirmative action officer from [facility] at bedside.
[2025-08-19] VITALS (7 sets, daily range): BP systolic 124–145; BP diastolic 64–97; PULSE 97–118; RESP 17–99; TEMP 36–36.8; O2SAT 97–99
[2025-08-19] MEDS: ceFAZolin/D5W 2 GM IV 2 GM/100 ML BAG IV ×4 (00:03→23:22)
[2025-08-19] MEDS: KETOROLAC INJ 30 MG/ML VIAL IVP ×3 (00:27→19:31)
[2025-08-19] MEDS: SODIUM CHLORIDE 0.9% 1000 ML 1,000 ML 125 ML IV ×3 (02:13→20:48)
[2025-08-19] MEDS: MORPHINE SULF INJ 4 MG/ML VIAL IVP ×4 (02:14→16:08)
[2025-08-19 07:56] LABS: Basophils # (Auto) 0.0 Thou/mm3 (0.0-0.2); Basophils % (Auto) 0 % (0-2.5); Eosinophils # (Auto) 0.0 Thou/mm3 (0.0-0.5); Eosinophils % (Auto) 0 % (0-10); Hematocrit 22.0 % (41.0-53.0); Immature Granulocytes Auto 0.08 Thou/mm3 (0.00-0.00); Lymphocytes # (Auto) 3.1 Thou/mm3 (1.0-4.8); Lymphocytes % (Auto) 20 % (10-50); Mean Corpuscular HGB Conc 34.5 g/dl (31.0-37.0); Mean Corpuscular Hemoglobin 30.8 pg (25.0-35.0); Mean Corpuscular Volume 89 fL (80-100); Monocytes # (Auto) 1.8 Thou/mm3 (0.0-0.8); Monocytes % (Auto) 12 % (0-12); Neutrophils # (Auto) 10.6 Thou/mm3 (1.8-7.7); Neutrophils % (Auto) 68 % (37-80); Nucleated Red Blood Cell # 0.00 Thou/mm3 (0.00-0.00); Nucleated Red Blood Cell % 0 /100 WBC (0); Platelet Count 250 Thou/mm3 (140-440); RDW Standard Deviation 43.7 fL (35.1-43.9); Red Blood Count 2.47 Miln/mm3 (4.50-5.90); White Blood Count 15.6 Thou/mm3 (3.8-10.6)
[2025-08-19 08:22] LABS: Hemoglobin 7.6 g/dL (13.5-16.0)
--- NOTE | 2025-08-19 13:22 | PC.SS ---
Cory Corona is a 30 year-old male admitted to [facility] for Incarcerated Umbilical Hernia with Gangrene. Pt is in custody with [facility]. ?Pt will return upon DC. For any emergencies pts surrogate decision maker is his mother Susan Corona [phone], Upon DC RN is to call report to the RN line at [phone]. SS will remain available for any additional needs or concerns. DC Plan: [facility] ? Contact: Mother, Susan
--- NOTE | 2025-08-19 17:27 | ESPR_ITS ---
Documentation for date of: 08/19/25 Subjective Subjective Brief History: History of present lisinopril that the patient has had this for some time he is not a poor historian and may have some mild mental retardation. At the present time he is in penitentiary and was seen in the emergency room due to painful mass. Past medical history with the patient had some surgery on his head in [place] but the details are not available Narrative: Patient is feeling better after the surgery yesterday Exam Vital Signs Temp Pulse Resp BP Pulse Ox O2 Del Method O2 Flow Rate 97.6 F 97 18 129/79 99 Room Air 4 08/19/25 16:00 08/19/25 16:00 08/19/25 16:00 08/19/25 16:00 08/19/25 16:00 08/19/25 16:00 08/18/25 15:55 His vital signs are normal Routine Abdominal Exam Comments: Abdominal examination showed hypoactive bowel sounds Results Results: Laboratory Laboratory Narrative: WBC still elevated Assessment & Plan Assessment Additional comments: Impression: Stable postoperative course after bowel resection Plan Plan: We shall start him on clear liquids. PROCEDURES: Procedures Repair of the strangulated umbilical hernia and resection of the small bowel and end-to-end anastomosis
--- NOTE | 2025-08-19 19:43 | PC.NURSE ---
@1931 patient notified MEDICAL SALES if he could have anyting for the pain. MEDICAL SALES notified night nurse and Patient's pain medication toradol was administered to patient. Officer guard at bedside.
--- NOTE | 2025-08-19 23:24 | PC.NURSE ---
Night nurse rounded on patient. Patient is comfortable sleeping and is showing no sign of distress. Officer is at bedside with patient and pateint RR when counted is 17.
[2025-08-20] VITALS (16 sets, daily range): BP systolic 136–155; BP diastolic 71–95; PULSE 83–110; RESP 16–98; TEMP 36.4–37.6; O2SAT 95–99; BMI 30.2
[2025-08-20] MEDS: MORPHINE SULF INJ 4 MG/ML VIAL IVP ×3 (00:14→12:52)
[2025-08-20] MEDS: ONDANSETRON INJ 2 MG/ML INJ 2 ML 4 MG IVP ×2 (03:04→12:02)
[2025-08-20] MEDS: SODIUM CHLORIDE 0.9% 1000 ML 1,000 ML 125 ML IV ×2 (05:55→14:23)
[2025-08-20 06:08] LABS: Basophils # (Auto) 0.0 Thou/mm3 (0.0-0.2); Basophils % (Auto) 0 % (0-2.5); Eosinophils # (Auto) 0.0 Thou/mm3 (0.0-0.5); Eosinophils % (Auto) 0 % (0-10); Hematocrit 20.3 % (41.0-53.0); Immature Granulocytes Auto 0.04 Thou/mm3 (0.00-0.00); Lymphocytes # (Auto) 1.9 Thou/mm3 (1.0-4.8); Lymphocytes % (Auto) 15 % (10-50); Mean Corpuscular HGB Conc 34.5 g/dl (31.0-37.0); Mean Corpuscular Hemoglobin 31.3 pg (25.0-35.0); Mean Corpuscular Volume 91 fL (80-100); Monocytes # (Auto) 1.2 Thou/mm3 (0.0-0.8); Monocytes % (Auto) 10 % (0-12); Neutrophils # (Auto) 9.4 Thou/mm3 (1.8-7.7); Neutrophils % (Auto) 75 % (37-80); Nucleated Red Blood Cell # 0.00 Thou/mm3 (0.00-0.00); Nucleated Red Blood Cell % 0 /100 WBC (0); Platelet Count 195 Thou/mm3 (140-440); RDW Standard Deviation 44.8 fL (35.1-43.9); Red Blood Count 2.24 Miln/mm3 (4.50-5.90); White Blood Count 12.5 Thou/mm3 (3.8-10.6)
[2025-08-20 06:13] LABS: Hemoglobin 7.0 g/dL (13.5-16.0)
[2025-08-20] MEDS: ceFAZolin/D5W 2 GM IV 2 GM/100 ML BAG IV ×2 (09:08→17:09)
[2025-08-20] MEDS: KETOROLAC INJ 30 MG/ML VIAL IVP (09:15)
--- NOTE | 2025-08-20 10:36 | PC.SS ---
SS met with officer Larry Montes at bedside. Per officer, in an event of a medical emergency contact the nurses's station from [facility] at [phone] and their nurses will contact family. Per officer, hospital staff must contact custodial center first.
--- NOTE | 2025-08-20 13:00 | PC.NURSE ---
Notified MD that pt has nausea and vomiting, zofran given and not working. Dr. Serrato came to bedside and ordered for NG tube 18fr to be placed, Make pt NPO and set NG tube to LIS
[2025-08-20] MEDS: BENZOCAINE 20% (Hurricaine) SPRAY 1 DOSE TOP (13:25)
--- NOTE | 2025-08-20 13:35 | PD.SURPROG ---
Documentation for date of: 08/20/25 Subjective Subjective Brief History: History of present lisinopril that the patient has had this for some time he is not a poor historian and may have some mild mental retardation. At the present time he is in group home and was seen in the emergency room due to painful mass. Past medical history with the patient had some surgery on his head in [place] but the details are not available Narrative: Patient has vomited today and has abdominal distention despite having bowel movements Exam Vital Signs Temp Pulse Resp BP Pulse Ox O2 Del Method O2 Flow Rate 97.5 F 86 18 139/74 H 98 Room Air 4 08/20/25 12:00 08/20/25 12:00 08/20/25 12:00 08/20/25 12:00 08/20/25 12:00 08/20/25 12:00 08/18/25 15:55 His vital signs are normal including a blood pressure Routine Abdominal Exam Comments: Abdomen is slightly distended Results Results: Laboratory Laboratory Narrative: Laboratory results show significant drop in the hemoglobin to 7 g. It was 7.6 yesterday showing that the patient may be bleeding Assessment & Plan Assessment Additional comments: Impression: Postoperative ileus Intra-abdominal bleeding Plan Plan: We shall monitor the hemoglobin level Insert an NG tube to decompress the small bowel from PROCEDURES: Procedures Repair of the strangulated umbilical hernia and resection of the small bowel and end-to-end anastomosis
--- NOTE | 2025-08-20 13:53 | XR_ITS ---
CLINICAL INDICATION: Ng tube placement TECHNIQUE: XR chest 1V post procedure COMPARISON: Chest radiograph 09/19/2022, CT abdomen/pelvis 08/18/2025 FINDINGS: Partially imaged nasogastric tube extending into the left upper quadrant and outside of the field of view. The cardiomediastinal silhouette is within normal limits. Redemonstration of linear attenuation in the right lower lobe consistent with bronchiolitis as well as subsegmental atelectasis and/or scarring as seen on the recent CT. No lobar consolidation. No pleural effusion or pneumothorax. No acute osseous abnormality detected. IMPRESSION: Partially imaged nasogastric tube extending into the left upper quadrant and outside of the field of view. Redemonstration of linear attenuation in the right lower lobe consistent with bronchiolitis as well as subsegmental atelectasis and/or scarring as seen on the recent CT.
--- NOTE | 2025-08-20 14:01 | XR_ITS ---
Examination: Abdomen AP single view Technique: AP portable supine abdomen, single view Exam date and time: 08/20/2025 2:06 p.m. INDICATION: NG tube placement COMPARISON: Same day chest radiograph. CT abdomen pelvis 08/18/2025 FINDINGS: The tip of the NG tube is in the mid gastric antrum territory at the abdominal midline projecting over the T11 vertebral body. Internal postoperative changes with surgical clips identified in the lower abdomen about the umbilical region. Interval development of extensive gaseous distention of small bowel up throughout the bilateral upper and lower quadrants and mild gas in the cecum and sigmoid colon as well. Small bowel distention is likely due to postoperative ileus. Impression: NG tube tip in appropriate position in the mid gastric antrum region. Postoperative ileus.
--- NOTE | 2025-08-20 14:24 | XR_ITS ---
X-RAY ABDOMEN FLAT AND UPRIGHT HISTORY: ileus COMPARISON: Abdominal radiographs of earlier the same day at 2:06 p.m. FINDINGS: Supine and upright images of the abdomen were submitted for review. Redemonstration of multiple gaseously distended small bowel up consistent with ileus status post recent surgery. There is no significant change in their appearance compared to the radiograph of less than 1 hour prior. Redemonstration of nasogastric tube, its distal end projecting over the gastric fundus on the upright view and within the mid gastric antrum on the supine view. No evidence for pneumoperitoneum. No apparent organomegaly. No acute osseous abnormality observed. Limited views of the chest show no airspace consolidation or pleural effusion. Heart size is within normal limits. Mild dextroscoliosis. Skin marci project in the umbilical region eccentric to the left. IMPRESSION: Stable postoperative ileus as described.
[2025-08-20 16:02] LABS: Basophils # (Auto) 0.0 Thou/mm3 (0.0-0.2); Basophils % (Auto) 0 % (0-2.5); Eosinophils # (Auto) 0.0 Thou/mm3 (0.0-0.5); Eosinophils % (Auto) 0 % (0-10); Mean Corpuscular HGB Conc 34.3 g/dl (31.0-37.0); Mean Corpuscular Hemoglobin 30.5 pg (25.0-35.0); Mean Corpuscular Volume 89 fL (80-100); Monocytes # (Auto) 0.6 Thou/mm3 (0.0-0.8); Monocytes % (Auto) 7 % (0-12); Neutrophils # (Auto) 6.7 Thou/mm3 (1.8-7.7); Nucleated Red Blood Cell # 0.00 Thou/mm3 (0.00-0.00); Nucleated Red Blood Cell % 0 /100 WBC (0); Platelet Count 181 Thou/mm3 (140-440); White Blood Count 8.0 Thou/mm3 (3.8-10.6)
[2025-08-20 16:03] LABS: Immature Granulocytes Auto 0.02 Thou/mm3 (0.00-0.00); Lymphocytes # (Auto) 0.6 Thou/mm3 (1.0-4.8); Lymphocytes % (Auto) 8 % (10-50); Neutrophils % (Auto) 85 % (37-80); RDW Standard Deviation 43.3 fL (35.1-43.9); Red Blood Count 2.26 Miln/mm3 (4.50-5.90)
[2025-08-20 16:13] LABS: Hematocrit 20.1 % (41.0-53.0)
--- NOTE | 2025-08-20 16:14 | PC.NURSE ---
left voicemail for Dr. Serrato pt has a low hgb 6.9 and HCT 20.1
--- NOTE | 2025-08-20 16:38 | PC.NURSE ---
Called Md and no answer, pt wants to leave AMA and will not want a blood transfusion for low HGB
--- NOTE | 2025-08-20 17:09 | PC.NURSE ---
Md at bedside, convinced pt to stay and receive blood transfusion, per MD remove NG tube now
[2025-08-20 17:21] LABS: Hemoglobin 6.9 g/dL (13.5-16.0)
--- NOTE | 2025-08-20 17:29 | ESPR_ITS ---
Documentation for date of: 08/20/25 Subjective Subjective Brief History: History of present lisinopril that the patient has had this for some time he is not a poor historian and may have some mild mental retardation. At the present time [facility] is in [facility] and was seen in the emergency room due to painful mass. Past medical history with the patient had some surgery on his head in [place] but the details are not available Narrative: Patient had an NG tube inserted and greenish fluid was aspirated. There was only about 200 cc of NG tube but he vomited most of it is before the NG was inserted Exam Vital Signs Temp Pulse Resp BP Pulse Ox O2 Del Method O2 Flow Rate 99.6 F 96 18 150/75 H 95 Room Air 4 08/20/25 16:00 08/20/25 16:00 08/20/25 16:00 08/20/25 16:00 08/20/25 16:00 08/20/25 16:00 08/18/25 15:55 His vital signs were normal other than tachycardia Results Results: Laboratory Laboratory Narrative: Laboratory tests results done at 4 PM showed hemoglobin goal below 7 to 6.9 g Results: Imaging Imaging narrative: Abdominal x-ray showed ileus that was generalized Assessment & Plan Assessment Additional comments: Impression: Postoperative ileus Bleeding causing anemia Plan Plan: I advised the patient that he will require 2 units of packed cells because his blood does come below 7. There may be ongoing bleeding in the abdomen and he may require reexploration if it continues in the form of dropping the hemoglobin. Patient is agreeable for transfusion. We shall get a CT scan tomorrow if necessary to see if there is any bleeding. PROCEDURES: Procedures Repair of the strangulated umbilical hernia and resection of the small bowel and end-to-end anastomosis
[2025-08-21] VITALS (9 sets, daily range): BP systolic 135–154; BP diastolic 75–86; PULSE 72–100; RESP 17–99; TEMP 36.4–37.4; O2SAT 97–99
[2025-08-21] MEDS: ceFAZolin/D5W 2 GM IV 2 GM/100 ML BAG IV ×4 (01:01→23:41)
[2025-08-21] MEDS: SODIUM CHLORIDE 0.9% 1000 ML 1,000 ML 80 ML IV ×2 (01:02→07:31)
[2025-08-21] MEDS: MORPHINE SULF INJ 4 MG/ML VIAL IVP ×2 (01:10→20:17)
[2025-08-21 06:16] LABS: Basophils # (Auto) 0.0 Thou/mm3 (0.0-0.2); Basophils % (Auto) 0 % (0-2.5); Eosinophils # (Auto) 0.1 Thou/mm3 (0.0-0.5); Eosinophils % (Auto) 1 % (0-10); Hematocrit 24.8 % (41.0-53.0); Immature Granulocytes Auto 0.02 Thou/mm3 (0.00-0.00); Lymphocytes # (Auto) 1.8 Thou/mm3 (1.0-4.8); Lymphocytes % (Auto) 21 % (10-50); Mean Corpuscular HGB Conc 33.9 g/dl (31.0-37.0); Mean Corpuscular Hemoglobin 30.2 pg (25.0-35.0); Mean Corpuscular Volume 89 fL (80-100); Monocytes # (Auto) 0.9 Thou/mm3 (0.0-0.8); Monocytes % (Auto) 11 % (0-12); Neutrophils # (Auto) 5.5 Thou/mm3 (1.8-7.7); Neutrophils % (Auto) 67 % (37-80); Nucleated Red Blood Cell # 0.00 Thou/mm3 (0.00-0.00); Nucleated Red Blood Cell % 0 /100 WBC (0); Platelet Count 187 Thou/mm3 (140-440); RDW Standard Deviation 45.5 fL (35.1-43.9); Red Blood Count 2.78 Miln/mm3 (4.50-5.90); White Blood Count 8.3 Thou/mm3 (3.8-10.6)
[2025-08-21 06:17] LABS: Hemoglobin 8.4 g/dL (13.5-16.0)
--- NOTE | 2025-08-21 10:29 | XR_ITS ---
Examination: CTA abdomen, with intravenous contrast. CTA pelvis, with intravenous contrast. 2-D sagittal and coronal reconstructions. 3-D reconstructions. Date and time of exam: August 21, 2025, 1004 hours INDICATIONS: Abdominal pain and distention this week, incarcerated small bowel in umbilical hernia on CT examination this morning CTDI vol (mgy) 10.1 DLP (MGycm) 477 Technique: Multiple CTA images, 2.0 mm slice thickness, obtained, abdomen, pelvis, with the high-resolution 64 slice scanner. 100 cc Isovue-370 normal is administered intravenously. Sagittal and coronal 2-D reconstructions are obtained. 3-D reconstructions, angiographic images are obtained. 3-D postprocessing, including vascular maximum intensity projections. Low dose protocols were performed. One or more of the following dose reduction techniques were used; automated exposure control, adjustment of the mA and/or KV according to patient size, use of iterative reconstruction technique. Findings: Tiny air droplet, pneumoperitoneum in this patient post surgery No focal liver or splenic lesions Free fluid in the abdomen including surrounding the spleen No gallstones There remains fluid and air distended small bowel loops with wall thickening No abdominal or pelvic abscess Postoperative change anterior abdominal wall Colonic diverticulosis Free fluid in the pelvis Contracted urinary bladder with urinary bladder wall thickening Intact osseous structures IMPRESSION: Pneumoperitoneum reflecting postoperative status Free fluid in the abdomen and pelvis including surrounding the spleen There remains fluid and air distended small bowel loops with wall thickening, clinical correlation advised, persistent small bowel obstruction and ischemic bowel included in the differential, the appearance should be clinically correlated
[2025-08-21 14:39] LABS: Hematocrit 24.5 % (41.0-53.0)
[2025-08-21 14:40] LABS: Hemoglobin 8.5 g/dL (13.5-16.0)
--- NOTE | 2025-08-21 15:43 | ESPR_ITS ---
Documentation for date of: 08/21/25 Subjective Subjective Brief History: History of present lisinopril that the patient has had this for some time he is not a poor historian and may have some mild mental retardation. At the present time [facility] and was seen in the emergency room due to painful mass. Past medical history with the patient had some surgery on his head in [place] but the details are not available Narrative: The patient's hemoglobin is stable around 8.4 g after 2 units of transfusion. He is feeling better and is having bowel movements. Exam Vital Signs Temp Pulse Resp BP Pulse Ox O2 Del Method O2 Flow Rate 97.6 F 84 18 149/86 H 99 Room Air 4 08/21/25 12:00 08/21/25 12:00 08/21/25 12:00 08/21/25 12:00 08/21/25 12:00 08/21/25 12:00 08/20/25 22:30 His vital signs are normal Routine Abdominal Exam Comments: Abdominal examination shows normal bowel sounds Results Results: Laboratory Laboratory Narrative: Laboratory results show normal WBC and increasing hemoglobin level Results: Imaging Imaging narrative: Patient had a CT angiogram today to look for any bleeding. There were some blood surrounding the spleen and in the pelvis obviously from bleeding after the surgery however there is no active bleeding as seen on the CTA Assessment & Plan Assessment Additional comments: Impression: Postoperative bleeding Postoperative ileus following small bowel resection Plan Plan: We shall monitor the blood level before we discharge him. Will start him on full liquid today. PROCEDURES: Procedures Repair of the strangulated umbilical hernia and resection of the small bowel and end-to-end anastomosis
[2025-08-22] VITALS: BP 152/92; PULSE 78; RESP 17; TEMP 36.7; O2SAT 100
[2025-08-22] MEDS: MORPHINE SULF INJ 4 MG/ML VIAL IVP (01:58)
[2025-08-22 04:00] VITALS: BP 141/90; PULSE 78; RESP 18; TEMP 36.6; O2SAT 99
[2025-08-22] MEDS: KETOROLAC INJ 30 MG/ML VIAL IVP (04:55)
[2025-08-22 05:17] LABS: Basophils # (Auto) 0.0 Thou/mm3 (0.0-0.2); Basophils % (Auto) 0 % (0-2.5); Eosinophils # (Auto) 0.1 Thou/mm3 (0.0-0.5); Eosinophils % (Auto) 2 % (0-10); Hematocrit 25.9 % (41.0-53.0); Hemoglobin 8.9 g/dL (13.5-16.0); Immature Granulocytes Auto 0.03 Thou/mm3 (0.00-0.00); Lymphocytes # (Auto) 1.7 Thou/mm3 (1.0-4.8); Lymphocytes % (Auto) 22 % (10-50); Mean Corpuscular HGB Conc 34.4 g/dl (31.0-37.0); Mean Corpuscular Hemoglobin 30.5 pg (25.0-35.0); Mean Corpuscular Volume 89 fL (80-100); Monocytes # (Auto) 0.8 Thou/mm3 (0.0-0.8); Monocytes % (Auto) 10 % (0-12); Neutrophils # (Auto) 4.9 Thou/mm3 (1.8-7.7); Neutrophils % (Auto) 65 % (37-80); Nucleated Red Blood Cell # 0.00 Thou/mm3 (0.00-0.00); Nucleated Red Blood Cell % 0 /100 WBC (0); Platelet Count 226 Thou/mm3 (140-440); RDW Standard Deviation 44.8 fL (35.1-43.9); Red Blood Count 2.92 Miln/mm3 (4.50-5.90); White Blood Count 7.6 Thou/mm3 (3.8-10.6)
[2025-08-22 05:49] LABS: Anion Gap 10 (7-16); Carbon Dioxide 25.6 mMol/L (20.0-31.0); Chloride 103 mMol/L (98-107); Potassium 3.9 mMol/L (3.4-5.1); Sodium 139 mMol/L (136-145)
[2025-08-22 07:17] VITALS: PULSE 120; RESP 20; RESP 99
[2025-08-22] MEDS: ceFAZolin/D5W 2 GM IV 2 GM/100 ML BAG IV (07:47)
--- NOTE | 2025-08-22 07:57 | PD.SURPROG ---
Documentation for date of: 08/22/25 Subjective Subjective Brief History: History of present lisinopril that the patient has had this for some time he is not a poor historian and may have some mild mental retardation. At the present time he is in custodial and was seen in the emergency room due to painful mass. Past medical history with the patient had some surgery on his head in [place] but the details are not available Narrative: Patient is tolerating diet and doing well without much complaints Exam Vital Signs Temp Pulse Resp BP Pulse Ox O2 Del Method O2 Flow Rate 97.9 F 120 H 20 141/90 H 99 Room Air 4 08/22/25 04:00 08/22/25 07:17 08/22/25 07:17 08/22/25 04:00 08/22/25 04:00 08/22/25 04:00 08/20/25 22:30 His vital signs are normal but is slightly tachycardic Routine Abdominal Exam Comments: Abdominal examination is negative Results Results: Laboratory Laboratory Narrative: Laboratory results show hemoglobin around 8.9 g Assessment & Plan Assessment Additional comments: Impression: Patient is stable for discharge Plan Plan: We shall discharge him today see him in my office in 2 weeks for suture removal PROCEDURES: Procedures Repair of the strangulated umbilical hernia and resection of the small bowel and end-to-end anastomosis
[2025-08-22 08:00] VITALS: BP 142/81; PULSE 70; RESP 18; TEMP 36.4; O2SAT 98
--- NOTE | 2025-08-22 08:22 | ESDS_ITS ---
RE: KWAN NEWSOME : 1995 DATE OF ADMISSION: 08/18/2025 DATE OF DISCHARGE: 08/22/2025 DATE OF ADMISSION: 08/18/2025 DATE OF DISCHARGE: 08/22/2025 FINAL DIAGNOSES: 1. Strangulation of the ventral hernia resulting in small-bowel obstruction and gangrene of the small bowel. 2. Postoperative bleeding requiring transfusion. 3. History of drug abuse. PROCEDURES DONE: 1. Exploratory laparotomy and resection of the small bowel end-to-end anastomosis. 2. Blood transfusion following a CTA that revealed bleeding in the abdomen. REASON FOR ADMISSION: This 30-year-old male was admitted to the emergency room with incarcerated ventral hernia and small-bowel obstruction. The patient was brought from the detention and he did not know how long he has had this problem. HOSPITAL COURSE: He was taken to the operating room based on the CT scan findings that showed small-bowel obstruction. At the time of surgery, he was found to have a gangrenous small bowel, which was resected and anastomosed. Postoperatively, the patient developed anemia probably from bleeding as a result of surgery. The patient was given 2 units of packed cells after confirming some bleeding in the abdomen and the pelvic region and surrounding the spleen on the CTA postoperatively. But no active bleeding was seen. The patient's course was otherwise unremarkable and he tolerated diet. He was having normal bowel function. He was discharged on 4th postoperative day. At that time, he was given Rupert 5/325 one every 4 hours p.r.n. for pain. The patient will be seen in my office for a followup in 2 weeks. DT: 08:08:25 TT: 08:21:00 Ref: [id number] - TID: [id number] MTDD
== END 2025-08-22 09:58 | disposition home or self-care (01) | DRG 230 ==
LOC: SERX 08:39 → S2EX 09:38 → S3SX 18:07
PROVIDERS: Emergency Medicine; Admitting Provider Surgery; Emergency Provider Emergency Medicine; PCP Internal Medicine; Referring Provider Surgery; Visit Provider Surgery
PROC: 0WQF0ZZ Repair Abdominal Wall, Open Approach (ICD-10-PCS; principal; 2025-08-18 14:00)
DX: K42.1 Umbilical hernia with gangrene (principal); K55.029 Acute infarction of small intestine, extent unspecified; K91.89 Other postprocedural complications and disorders of digestive system; K43.6 Other and unspecified ventral hernia with obstruction, without gangrene; K56.7 Ileus, unspecified; Z87.891 Personal history of nicotine dependence; Z88.0 Allergy status to penicillin
CPT/HCPCS: 36415; 74018; 74019; 74174; 74177; 80051; 80053; 83605; 83690; 85014; 85018; 85025; 86850; 86900; 86901; 86923; 96361; 96374; 96376; 99284; A4649; J0689; J1100; J1171; J1885; J2250; J2270; J2405; J2704; J3010; J3490; J7030; J7120; P9016; Q9967; A9270; J1805

== ENCOUNTER 2025-09-01 12:02 | Emergency (ER) | payer MEDICAID, SELFPAY ==
--- NOTE | 2025-09-01 12:56 | PD.EDSKIN ---
ED Skin Abcess FB-RME/HPI General Chief complaint: General Adult/Misc Complain Stated complaint: RETURNED FOR STAPLE REMOVAL Time Seen by Provider: 09/01/25 12:03 Arrival date/time: 09/01/25 12:02 30-year-old male presents to the emergency department today requesting staple removal recently had procedure with Dr. Serrato general surgeon patient has sutures at the umbilical region Limitations: no limitations Related Data Home Medications ?Medication ?Instructions ?Recorded ?Confirmed atomoxetine 25 mg capsule 25 mg PO DAILY 08/18/25 08/18/25 venlafaxine 75 mg capsule,extended 75 mg PO DAILY 08/18/25 08/18/25 release 24 hr Previous Rx's ?Medication ?Instructions ?Recorded polyethylene glycol 3350 17 17 g PO QDAY PRN constipation #238 05/25/25 gram/dose oral powder (Miralax) grams ibuprofen 600 mg tablet 600 mg PO Q8H PRN pain #10 tabs 07/17/25 hydrocodone 5 mg-acetaminophen 325 1 tab PO Q6H #20 tabs 08/22/25 mg tablet Allergies Allergy/AdvReac Type Severity Reaction Status Date / Time Penicillins Allergy Unknown RASH Verified 09/01/25 12:04 Review of Systems Review of Systems Systems Reviewed: All systems reviewed, normal except as documented Constitutional Constitutional: Reports system reviewed and no additional complaints, except as documented, Denies fever(s) and Denies headache(s) Eyes Eyes: Reports system reviewed and no additional complaints, except as documented and Denies blurry vision ENT Ears, Nose, Mouth, and Throat: Reports system reviewed and no additional complaints, except as documented, Denies headache(s), Denies nasal congestion and Denies nasal discharge Cardiovascular Cardiovascular: Reports system reviewed and no additional complaints, except as documented, Denies chest pain and Denies dyspnea Respiratory Respiratory: Reports system reviewed and no additional complaints, except as documented, Denies chest congestion, Denies cough and Denies dyspnea Gastrointestinal Gastrointestinal: Reports system reviewed and no additional complaints, except as documented and Denies abdominal pain Integumentary/Breasts Skin/Breast: Reports system reviewed and no additional complaints, except as documented, Denies rash and Reports wounds (Laceration) Neurologic Neurologic: Reports system reviewed and no additional complaints, except as documented, Reports as per HPI and Denies headache(s) Past Medical History Past Medical History NEUROLOGIC: Negative Seizures CARDIAC: Negative Cardiac Disorders or Congestive Heart Failure RESPIRATORY: Negative Chronic Obstructive Pulmonary Disease (COPD) or Asthma GASTROINTESTINAL: Positive Hiatal Hernia (Umbilical Hernia) GENITOURINARY: Negative Renal Disease ENDOCRINE: Negative Diabetes Mellitus Type 1 or Diabetes Mellitus Type 2 HEMATOLOGIC: Negative Sickle Cell Disease PSYCHO/SOCIAL: Positive Schizophrenia, Recreational Drug Use and Anxiety OTHER HISTORY: Negative Blood Transfusions, Blood Transfusion Reaction or Anesthesia Reactions Social History SMOKING STATUS: Never smoker SUBSTANCE USE: marijuana and methamphetamine ED Exam General Limitations: Present no limitations General appearance: Present alert and in no apparent distress Head Head exam: Present atraumatic, normocephalic and normal inspection Eye Eye exam: Present normal appearance, PERRL and EOMI ENT ENT exam: Present normal exam, normal oropharynx and mucous membranes moist Neck Neck exam: Present normal inspection, full ROM and trachea midline Chest Chest inspection: Present normal inspection and symmetric chest wall rise Respiratory Respiratory exam: Present normal lung sounds bilaterally Cardiovascular Cardiovascular exam: Present regular rate, normal rhythm and normal heart sounds Abdominal Exam Abdominal exam: Present soft and normal bowel sounds Extremities Exam Extremities exam: Present normal inspection and full ROM Back Exam Back exam: Present normal inspection and full ROM Neurological Exam Neurological exam: Present alert, oriented X3, CN II-XII intact, normal gait and reflexes normal; Absent motor sensory deficit Psychiatric Psychiatric exam: Present normal affect and normal mood Skin Skin exam: Present warm and dry Expanded Skin Exam Body image:  1. Laceration [address] Course Quality Measures none Vital Signs Vital signs: Vital Signs Temperature 98.4 F 09/01/25 13:14 Pulse Rate 87 09/01/25 13:14 Respiratory Rate 16 09/01/25 13:14 Blood Pressure 141/88 H 09/01/25 13:14 Pulse Oximetry (%) 99 09/01/25 13:14 Oxygen Delivery Method Room Air 09/01/25 13:14 O2 saturation 99% room air within normal limits Skin / Abscess / Foreign Body MDM Narrative MDM Narrative:: 30-year-old male presents to the emergency department today requesting staple removal recently had procedure with Dr. Serrato general surgeon patient has sutures at the umbilical region Clinically patient well-appearing does not appear ill or toxic no acute distress Exam patient is no evidence of infection Consultation: I spoke with Dr. Serrato states he will come evaluate the patient Dr. Serrato saw the patient states that marci can be removed the patient to follow-up with him in a week Patient data External records reviewed:: [facility] previous records Clinical information provided by:: patient Social determinants that could affect healthcare access:: none Patient has the following chronic illnesses:: See history How is presenting disease/condition affected by chronic disease/condition?: caused by Evaluation data The following diagnostics were reviewed and interpreted by me:: other (specify) Lab and/or radiology exams considered but not ordered:: Considered not ordered Interpretation Summary: N/A Medications / Prescriptions Medications or Prescriptions considered but not ordered:: Given no meds Medication administrations:: Given no meds Consultations Consultation(s) initiated? (list below): Yes Consultation #1 (Physician, Specialty, Details): Dr. Serrato Diagnosis Skin/Abscess Differential Diagnosis: abscess of skin or subcutaneous tissue, cellulitis and other (Surgical wound) Most likely diagnosis given after review of the tests above:: Laceration Admission Indicated Admission indicated?: not indicated Admission Request Was there a request for admission?: No Disposition Plan Disposition Plan: Discharge Discharge Attestation Discharge Attestation: The patient and all family members were given an opportunity to ask questions and understood the discharge instructions. Discharge instructions specifically effects, indications for sooner follow up or return to the emergency department, and the expected course of current diagnosis. Patient condition: Stable Discharge Plan Plan Patient Disposition: HOME (Self Care) Discharge Disposition comment: Stable Prescriptions/Referrals Prescriptions/Med Rec: No Action venlafaxine 75 mg capsule,extended release 24hr 75 mg PO DAILY atomoxetine 25 mg capsule 25 mg PO DAILY Patient Comments: TAKE 1 CAPSULE BY MOUTH EVERY DAY hydrocodone-acetaminophen 5-325 mg tablet 1 tab PO Q6H MDD 4 Qty: 20 0RF polyethylene glycol 3350 [Miralax] 17 gram/dose powder 17 g PO QDAY PRN (Reason: constipation) Qty: 238 0RF ibuprofen 600 mg tablet 600 mg PO Q8H PRN (Reason: pain) Qty: 10 0RF Problem List Clinical Impression: Encounter for staple removal Patient/Caregiver Discharge Instructions Education Materials: ED Stitches/Staple Removal No ... Additional Instructions: Please follow up with your primary care doctor in the next 24-48hrs for any worsening symptoms return here immediately Print Language: Portuguese Stand Alone Forms: Olive Award Info., Patient Portal Info Letter PA/FULL TIME STAFF INTERPRETER Supervising Physician PA/FULL TIME STAFF INTERPRETER Supervising Physician: Dr. thomas
[2025-09-01 13:14] VITALS: BP 141/88; PULSE 87; RESP 16; TEMP 36.9; O2SAT 99; BMI 27.3
--- NOTE | 2025-09-01 13:29 | PC.NURSE ---
7 marci removed from medial lower abdominal surgical site. Incision well approximated and healing well. no s/sx of infection to area.
== END 2025-09-01 13:32 | disposition home or self-care (01) ==
LOC: SERX 13:23
PROVIDERS: Emergency Provider Family Medicine
DX: S31.115D Laceration without foreign body of abdominal wall, periumbilic region without penetration into peritoneal cavity, subsequent encounter (principal); X58.XXXD Exposure to other specified factors, subsequent encounter
CPT/HCPCS: 99281